=== PATIENT | female | born 1980 | race African-American/Black ===

== ENCOUNTER → 2025-03-10 | Outpatient (CLI) | payer MEDICARE, MEDICAID, SELFPAY ==
--- NOTE | 2025-03-10 10:00 | XR_ITS ---
Examination: Breast ultrasound, unilateral, right complete Date and time of exam: March 10, 2025 1016 hours INDICATIONS: Diagnosis diffuse cystic mastopathy, outside mammogram 8mm nodule 3:00 position right breast Technique: Real-time guerrero scale ultrasonographic imaging performed right breast including all 4 quadrants as well as nipple retroareolar and axillary region. Findings: 2:00 cyst 6 x 4 mm, likely corresponding to the mammographic abnormality No solid nodules IMPRESSION: BI-RADS Category 2: Benign findings
--- NOTE | 2025-03-10 10:30 | XR_ITS ---
Examination: Diagnostic digital mammography, unilateral, right Computer aided detection 3-D breast Tomosynthesis, unilateral Date and time of exam: March 10, 2025 10:30 AM INDICATIONS: Outside mammogram 05/20/2025 8mm nodule 3:00 position right breast Technique: Nonmagnified MLO, CC views of the right breast have been obtained, reconstructed from 3-D Tomosynthesis images. R2 computer aided detection program utilized for evaluation of suspicious masses and/or abnormal calcifications. 3-D Tomosynthesis images obtained. Findings: The breast is heterogeneously dense, which may obscure small masses 6 mm circumscribed nodule is confirmed inner right breast Impression: BI-RADS category 3: Probably benign findings One additional 6 month right mammogram follow-up recommended to document stability of circumscribed nodule inner right breast
== END | disposition home or self-care (01) ==
DX: N63.10 Unspecified lump in the right breast, unspecified quadrant (principal)
CPT/HCPCS: 76641; 77061; 77065; G0279